=== PATIENT | female | born 1960 | race Caucasian/White ===

== ENCOUNTER → 2021-08-18 | Outpatient (CLI) | payer OTHER ==
[~2021-08-18] MED LIST: CATHETER FLUSH 10 ML SYR IV PRN; HOLD METFORMIN - RECEIVED CONTRAST 20 ML VIAL IV SCH; IOHEXOL 350 MG/ML 100 ML (OMNIPAQUE 350) VIAL IV ONE; NS 100 ML (IVPB) BAG IV ONE
[2021-08-18 08:24] LABS: CREATININE SERUM 0.69 MG/DL (0.60-1.30)
--- NOTE | 2021-08-18 09:45 | Diagnostic Imaging Report ---
PROCEDURE: CT angiography of the chest with contrast. TECHNIQUE: Multiple contiguous axial images were obtained through the chest after uneventful bolus administration of intravenous contrast. 3D reconstructed CTA MIP acquisitions were also performed. Auto Exposure Controls were utilized during the CT exam to meet ALARA standards for radiation dose reduction. INDICATION: Pulmonary hypertension. No prior studies are available for comparison. There is some dilatation of the main pulmonary artery as well as the main right and left pulmonary arteries, which could reflect pulmonary hypertension. No filling defects are seen within central, lobar, or segmental branches to suggest pulmonary emboli. Thoracic aorta is normal in caliber. There is no dissection. No pericardial or pleural fluid is identified. Parenchymal evaluation does show some centrilobular emphysematous changes throughout both lungs. There is some linear atelectasis or scarring in the left upper lobe posteriorly. There is some atelectasis in the lingula and right middle lobe. No infiltrates are seen. No nodules or masses are detected. Upper abdomen is unremarkable. IMPRESSION: 1. Dilatation of the pulmonary arteries, perhaps on the basis of pulmonary hypertension. 2. Mild centrilobular emphysematous changes. 3. Subsegmental atelectasis, as described. Dictated by: Dictated on workstation # [id number]
== END ==
LOC: RAD 08:15
PROVIDERS: ATTEND Internal Medicine Cardiovascular Disease
DX: J43.2 Centrilobular emphysema (principal); J98.11 Atelectasis; I27.20 Pulmonary hypertension, unspecified
CPT/HCPCS: 36415; 71275; 82565; 84520

== ENCOUNTER → 2021-12-22 | Outpatient (CLI) | payer OTHER ==
--- NOTE | 2021-12-22 13:05 | Diagnostic Imaging Report ---
INDICATION: Chest x-ray performed for concurrent VQ scan. Shortness of breath. EXAMINATION: Two-view chest on 12/22/2021. FINDINGS: There are coarsened interstitial markings throughout the lungs with no focal infiltrates or effusions. There is no pneumothorax. The heart and pulmonary vasculature are normal. IMPRESSION: No acute cardiopulmonary process. Dictated by: Dictated on workstation # [id number]
--- NOTE | 2021-12-22 14:11 | Diagnostic Imaging Report ---
INDICATION: Pulmonary hypertension. Shortness of breath. TECHNIQUE: Perfusion study only. 5.5 mCi of technetium-99m MAA was given IV. FINDINGS: There is a subsegmental wedge-shaped defect along the mid portion of the left lung. The chest x-ray from 12/22/2021 was clear. IMPRESSION: Question of a subsegmental wedge-type defect in the left mid lung. This is considered intermediate or indeterminate. Dictated by: Dictated on workstation # [id number]
== END ==
LOC: CARD 13:00
PROVIDERS: ATTEND Internal Medicine Critical Care Medicine
DX: I27.20 Pulmonary hypertension, unspecified (principal)
CPT/HCPCS: 71046; 94621